=== PATIENT | male | born 1980 | race Caucasian/White ===

== ENCOUNTER 2018-03-13 22:16 | Emergency (ER) | payer OTHER ==
--- NOTE | 2018-03-13 22:48 | ED Physician Chart ---
ED Chief Complaint/HPI - Patient Information Date Seen:: 03/13/18 Time Seen:: 23:25 Chief Complaint:: suicidal ideation History of Present Illness:: Patient states he has constant negative thoughts. He has no specific plans for how to hurt himself. Was released from a 72 hour psychiatric hold 2 days ago. Allergies:: Allergies Allergy/AdvReac Type Severity Reaction Status Date / Time lithium Allergy Verified 03/13/18 22:28 Vitals:: Vital Signs - 8 hr 03/13/18 22:20 Temp 98.1 F HR 89 RR 20 BP 140/97 O2 Sat % 96 Historian:: Patient Review:: Nurse's Note Reviewed ED Review of Systems - Review of Systems General/Constitutional: No fever, No chills Skin: No skin lesions Head: No headache Eyes: No loss of vision ENT: No earache Neck: No neck pain, No swelling Cardio Vascular: No chest pain, No palpitations Pulmonary: No SOB GI: No nausea, No vomiting, No diarrhea G/U: No dysuria Musculoskeletal: No bone or joint pain, No back pain, No muscle pain Endocrine: No polyuria, No polydipsia Psychiatric: Prior psych history ED Past Medical History - Past Medical History Obtainable: No Past Medical History: No significant medical hx Family History: Other (schizophrenia) Social History: Non Smoker, No Alcohol, Other (smokes marijuana) Surgical History: None Psychiatricy History: Other (bipolar; ADHD) Medication: Reviewed Family Medical History - Family Member Mother Ethnicity: Non- Hx Family Cancer: No Hx Family Coronary Artery Disease: No Hx Family Congestive Heart Failure: No Hx Family Hypertension: No Hx Family Stroke: No Hx Family Diabetes: No Hx Family Seizures: No Hx Family Dementia: No Hx Family AIDS: No Hx Family HIV: No Hx Family COPD: No Hx Family Hepatitis: No Hx Family Psychiatric Problems: No Hx Family Tuberculosis: No ED Physical Exam - Physical Examination General/Constitutional: Awake, Well-developed, well-nourished, Alert, No distress, GCS 15, Non-toxic appearing, Ambulatory Head: Atraumatic Eyes: Lids, conjuctiva normal, PERRL, EOMI Skin: Nl inspection, No rash, No skin lesions, No ecchymosis, Well hydrated, No lymphadenopathy ENMT: External ears, nose nl, Nasal exam nl, Lips, teeth, gums nl Neck: Nontender, Full ROM w/o pain, No JVD, No nuchal rigidity, No bruit, No mass, No stridor Respiratory: Nl effort/Exclusion, Clear to Auscultation, No Wheeze/Rhonchi/Rales Cardio Vascular: RRR, No murmur, gallop, rubs, NL S1 S2 GI: No tenderness/rebounding/guarding, No organomegaly, No hernia, Normal BS's, Nondistended, No mass/bruits, No McBurney tenderness : No CVA tenderness Extremities: No tenderness or effusion, Full ROM, normal strength in all extremities, No edema, Normal digits & nails Neuro/Psych: Alert/oriented, DTR's symmetric, Normal sensory exam, Normal motor strength, Judgement/insight normal, Mood normal, Normal gait, No focal deficits Misc: Normal back, No paraspinal tenderness ED Labs/Radiology/EKG Results - Lab Results Results: Laboratory Results - last 24 hr 03/13/18 03/13/18 03/13/18 22:50 22:50 22:56 WBC 10.2 RBC 4.93 Hgb 13.6 Hct 41.4 MCV 83.8 MCH 27.6 MCHC Differential 32.9 RDW 12.5 Plt Count 329 MPV 7.9 Neutrophils % 65.4 Lymphocytes % 21.7 Monocytes % 9.9 Eosinophils % 2.2 Basophils % 0.8 Sodium 138 Potassium 3.5 Chloride 106 Carbon Dioxide 25.1 Anion Gap 10.4 BUN 16 Creatinine 0.9 Est GFR ( Amer) > 60.0 Est GFR (Non-Af Amer) > 60.0 BUN/Creatinine Ratio 17.8 Glucose 114 H Calcium 8.8 Urine Source MIDSTREAM Urine Color YELLOW Urine Clarity CLEAR Urine pH 5.0 Ur Specific [place] >= 1.030 Urine Protein NEGATIVE Urine Glucose (UA) NEGATIVE Urine Ketones NEGATIVE Urine Blood NEGATIVE Urine Nitrate NEGATIVE Urine Bilirubin MODERATE H Urine Urobilinogen 1.0 Ur Leukocyte Esterase NEGATIVE Urine RBC NONE SEEN Urine WBC NONE SEEN Ur Epithelial Cells NONE SEEN Urine Bacteria NONE SEEN Salicylates < 25.0 L Urine Opiates Screen Urine Methadone Screen Acetaminophen < 10.0 L Ur Barbiturates Screen Ur Tricyclics Screen Ur Phencyclidine Scrn Amphetamines Screen U Methamphetamines Scrn U Benzodiazepines Scrn U Cocaine Metab Screen U Cannabinoids Screen Ethyl Alcohol < 10 04/23/18 22:56 WBC RBC Hgb Hct MCV MCH MCHC Differential RDW Plt Count MPV Neutrophils % Lymphocytes % Monocytes % Eosinophils % Basophils % Sodium Potassium Chloride Carbon Dioxide Anion Gap BUN Creatinine Est GFR ( Amer) Est GFR (Non-Af Amer) BUN/Creatinine Ratio Glucose Calcium Urine Source Urine Color Urine Clarity Urine pH Ur Specific [place] Urine Protein Urine Glucose (UA) Urine Ketones Urine Blood Urine Nitrate Urine Bilirubin Urine Urobilinogen Ur Leukocyte Esterase Urine RBC Urine WBC Ur Epithelial Cells Urine Bacteria Salicylates Urine Opiates Screen NEGATIVE Urine Methadone Screen NEGATIVE Acetaminophen Ur Barbiturates Screen NEGATIVE Ur Tricyclics Screen NEGATIVE Ur Phencyclidine Scrn NEGATIVE Amphetamines Screen NEGATIVE U Methamphetamines Scrn NEGATIVE U Benzodiazepines Scrn POSITIVE H U Cocaine Metab Screen NEGATIVE U Cannabinoids Screen POSITIVE H Ethyl Alcohol ED Septic Shock - . Is Septic Shock (SBP<90, OR Lactate>4 mmol\L) present?: No - <6hrs of presentation: Vital Signs: Vital Signs - 8 hr 03/13/18 22:20 Temp 98.1 F HR 89 RR 20 BP 140/97 O2 Sat % 96 ED Reassessment (Disposition) - Reassessment Reassessment:: Plan is to get a psych evaluation on the patient. It is very doubtful that the patient is actually suicidal. It appears that as soon as he is discharged from 1 psych facility he immediately goes to the emergency room of another hospital saying he is suicidal. He states states he lives in motels which suggests he is basically homeless. - Diagnosis Diagnosis:: Suicide ideation by history; bipolar; ADHD - Patient Disposition Discharge/Transfer:: medically cleared to go to a psychiatric facility
[2018-03-13 22:58] LABS: % BASOPHILS 0.8 % (0.0-2.0); % EOSINOPHILS 2.2 % (0.0-5.0); % LYMPHOCYTES 21.7 % (20.0-50.0); % MONOCYTES 9.9 % (2.0-10.0); % NEUTROPHILS 65.4 % (40.0-80.0); BASOPHILE ABSOLUTE 0.1 Th/cumm (0-0.2); EOSINOPHILE ABSOLUTE 0.2 Th/cmm (0.1-0.4); HEMATOCRIT 41.4 % (41.0-60); HEMOGLOBIN 13.6 gm/dL (12-16); LYMPHOCYTE ABSOLUTE 2.2 Th/cmm (1.5-3.0); MEAN CELL VOLUME 83.8 fl (80-99); MEAN CORPUSCULAR HEMOGLOBIN 27.6 pg (26.0-30.0); MEAN CORPUSCULAR HGB CONC 32.9 pg (28.0-36.0); MEAN PLATELET VOLUME 7.9 fl; NEUTROPHILE ABSOLUTE 6.7 Th/cmm (1.8-8.0); PLATELET COUNT 329 Th/cmm (150-400); RED BLOOD COUNT 4.93 Mil/cmm (4.30-5.70); RED CELL DISTRIBUTION WIDTH 12.5 % (11.5-20.0); WHITE BLOOD COUNT 10.2 Th/cmm (4.8-10.8)
[2018-03-13 23:04] LABS: URINE MICROSCOPIC INDICATED? YES; URINE SOURCE MIDSTREAM
[2018-03-13 23:16] LABS: URINE BILIRUBIN MODERATE (NEGATIVE); URINE BLOOD NEGATIVE (NEGATIVE); URINE GLUCOSE (UA) NEGATIVE (NEGATIVE); URINE KETONE NEGATIVE (NEGATIVE); URINE LEUKOCYTE ESTERASE NEGATIVE (NEGATIVE); URINE NITRATE NEGATIVE (NEGATIVE); URINE PROTEIN NEGATIVE (NEGATIVE)
[2018-03-13 23:17] LABS: URINE BACTERIA NONE SEEN /hpf (NONE SEEN); URINE CLARITY CLEAR (CLEAR); URINE COLOR YELLOW; URINE EPITHELIAL CELLS NONE SEEN /lpf (FEW); URINE RBC NONE SEEN /hpf (0-5); URINE WBC NONE SEEN /hpf (0-5)
[2018-03-13 23:21] LABS: ACETAMINOPHEN < 10.0 ug/mL (10.0-30.0); ANION GAP 10.4 (7.0-16.0); BUN - UREA NITROGEN 16 mg/dL (7-25); CALCIUM SERUM 8.8 mg/dL (8.6-10.3); CARBON DIOXIDE 25.1 mEq/L (21.0-31.0); CHLORIDE 106 mEq/L (98-107); CREATININE - SERUM 0.9 mg/dL (0.7-1.3); GFR AFRICAN-AMERICAN > 60.0 ml/min (>90); GFR NON AFRICAN-AMERICAN > 60.0 ml/min; GLUCOSE 114 mg/dL (70-105); POTASSIUM SERUM 3.5 mEq/L (3.5-5.1); SALICYLATES (ASPIRIN) < 25.0 mg/L (30.0-100.0); SODIUM SERUM 138 mEq/L (136-145)
[2018-03-13 23:43] LABS: AMPHETAMINE URINE NEGATIVE (NEGATIVE); BARBITURATES URINE NEGATIVE (NEGATIVE); BENZODIAZEPINES QUAL URINE POSITIVE (NEGATIVE); CANNABINOID THC POSITIVE (NEGATIVE); COCAINE METABOLITE QUAL URINE NEGATIVE (NEGATIVE); METHADONE URINE NEGATIVE (NEGATIVE); METHAMPHETAMINES QUAL URINE NEGATIVE (NEGATIVE); OPIATES (MORPHINE) QUAL. URINE NEGATIVE (NEGATIVE); PHENCYCLIDINE (PCP) URINE NEGATIVE (NEGATIVE); TRICYCLICS (TCA) QUAL. URINE NEGATIVE (NEGATIVE)
--- NOTE | 2018-03-14 12:36 | ER Physician Documentation ---
DATE OF SERVICE: 03/14/2018 FURTHER PROGRESS REPORT SUBJECTIVE: The patient was seen yesterday by Dr. Reddy and the patient was medically cleared, but the patient had suicidal ideas and wanting to kill, but today the patient has no such thoughts and the patient was seen by our psychologist here who had the follow authority to discharge the patient who wants to kill himself. He is safe and sound. He wants to go home and wants to clean himself and then he wants to go home and he can find a place or care home or other place, so I was told by the psychologist to discharge the patient. Since the patient does not have any acute medical problem, the patient will be discharged for home. So, in my opinion, the patient does not have any medical problem and the patient is discharged for home and to be going home. He is not suicidal, he is not homicidal, does not want to kill anybody, does not have any problem. His lab workup shows 10.2 WBC, hemoglobin 13.6, hematocrit 41.4. Electrolytes: Sodium 138, potassium 3.5, BUN 16. Urine midstream was negative. Urine bilirubin was ___ urine leukocyte esterase negative. So, the patient will be discharged for home. So, the patient will be going home and everybody here are aware. The patient used to be delusional and suicidal and just released from psych facility, in and out of ___ in the past. ALLERGIES: LITHIUM. There is no pain. Vital signs were normal. DIAGNOSES: 1. Attention deficit hyperactivity disorder. 2. Bipolar disorder. 3. Psychiatric problems. The patient was seen by Dr. Reddy before Dr. Reddy left yesterday night at 7 p.m. and I came on at 7 p.m. and today is 12 noon on 03/14/2018. JOB# [id number]
== END 2018-03-14 12:30 | disposition home or self-care (01) ==
LOC: ER 22:16
DX: R45.851 Suicidal ideations (principal); F31.9 Bipolar disorder, unspecified; F90.9 Attention-deficit hyperactivity disorder, unspecified type; Z88.8 Allergy status to other drugs, medicaments and biological substances
CPT/HCPCS: 36415-UA; 80048-TC; 80307; 80320-TC; 80329-TC; 81001-TC; 85025-TC; Z7502